=== PATIENT | female | born 1975 | race Two or more races ===

== ENCOUNTER 2024-11-14 13:44 | Emergency (ER) | payer MEDICARE, MEDICAID, SELFPAY ==
--- NOTE | 2024-11-14 13:48 | EKG_ITS ---
[facility] Test Date: 2024-11-14 Pat Name: LAITH THOMAS Department: Room: - Gender: Female Psychology Instructor: : 1975 Requested By: Edvin Mendoza (PRAKASH) Order Number: [id number] Reading MD: Edvin Mendoza (LITHOGRAPHER APPRENTICE) Measurements Intervals [place] Rate: 97 P: 26 [place]: 166 QRS: -75 QRSD: 89 T: 35 QT: 364 QTc: 464 Interpretive Statements SINUS RHYTHM LOW QRS VOLTAGE IN PRECORDIAL LEADS [QRS DEFLECTION < 1.0 mV IN CHEST LEADS] INFERIOR MYOCARDIAL INFARCTION , PROBABLY OLD [40+ ms Q WAVE AND/OR ST/T ABNORMALITY IN II/aVF] ANTEROLATERAL MYOCARDIAL INFARCTION , OF INDETERMINATE AGE [40+ ms Q WAVE IN I/aVL/V3-V6] No previous ECG available for comparison /[id number]/[email or web address]/[id number]
[2024-11-14 13:58] VITALS: BP 125/90; PULSE 100; RESP 18; TEMP 36.7; O2SAT 94; BMI 32.1
--- NOTE | 2024-11-14 14:08 | XR_ITS ---
Examination: PA chest single view TECHNIQUE: Upright PA chest single view Date and time: November 14, 2024 1420 hours INDICATIONS: Dizziness today FINDINGS: Normal heart size No pneumonia or pulmonary edema Moderate osteopenia IMPRESSION: No pneumonia or pulmonary edema
--- NOTE | 2024-11-14 14:11 | PD.EDRME ---
Rapid Medical Screening Exam E Arrival date/time: 11/14/24 13:44 49-year-old female presents to the emergency department today for complaints of feeling weird patient reports history of Graves' disease Chief Complaint: Syncope / Near Syncope Vital signs: Vital Signs Temperature 98.0 F 11/14/24 13:58 Pulse Rate 100 11/14/24 13:58 Respiratory Rate 18 11/14/24 13:58 Blood Pressure 125/90 H 11/14/24 13:58 Pulse Oximetry (%) 94 L 11/14/24 13:58 Oxygen Delivery Method Room Air 11/14/24 13:58
[2024-11-14 14:30] LABS: Basophils % (Auto) 0 % (0-2.5); Eosinophils % (Auto) 0 % (0-10); Hematocrit 41.5 % (36.0-46.0); Hemoglobin 14.8 g/dL (12.0-16.0); Immature Granulocytes % (Auto) 1 % (0-0); Immature Granulocytes Auto 0.06 Thou/mm3 (0.00-0.00); Lymphocytes # (Auto) 1.6 Thou/mm3 (1.0-4.8); Lymphocytes % (Auto) 18 % (10-50); Mean Corpuscular HGB Conc 35.7 g/dl (31.0-37.0); Mean Corpuscular Hemoglobin 32.3 pg (25.0-35.0); Mean Corpuscular Volume 91 fL (80-100); Monocytes # (Auto) 0.4 Thou/mm3 (0.0-0.8); Monocytes % (Auto) 5 % (0-12); Neutrophils # (Auto) 6.9 Thou/mm3 (1.8-7.7); Neutrophils % (Auto) 77 % (37-80); Nucleated Red Blood Cell % 0 /100 WBC (0); Platelet Count 310 Thou/mm3 (140-440); RDW Standard Deviation 49.2 fL (36.4-46.3); Red Blood Count 4.58 Miln/mm3 (4.00-5.20); White Blood Count 8.9 Thou/mm3 (3.6-11.0)
[2024-11-14 14:43] LABS: INR 1.1 (0.9-1.3); Partial Thromboplastin Time 23.9 Seconds (22.0-36.0); Prothrombin Time 11.5 Seconds (9.0-12.2)
[2024-11-14 14:45] LABS: B-Type Natriuretic Peptide 24 pg/mL (0-100)
[2024-11-14 14:50] LABS: Alanine Aminotransferase 33 U/L (10-49); Albumin, Serum 4.9 gm/dL (3.5-5.0); Albumin/Globulin Ratio 1.9 (1.2-2.2); Alkaline Phosphatase 101 U/L (46-116); Anion Gap 12 (7-16); Aspartate Amino Transferase 25 U/L (0-34); BUN/Creatinine Ratio 14 Ratio (12-20); Bilirubin,Total 0.9 mg/dL (0.3-1.2); Blood Urea Nitrogen 11 mg/dL (9-23); Calcium 9.6 mg/dL (8.3-10.6); Calcium (Corrected) 9.6 mg/dL (8.5-10.1); Carbon Dioxide 21.1 mMol/L (20.0-31.0); Chloride 106 mMol/L (98-107); Creatinine (Component) 0.8 mg/dL (0.6-1.3); Estimated Creatinine Clearance 79.1 mL/min (>60); Free T4 (Free Thyroxine) 0.88 ng/dL (0.89-1.76); Globulin 2.6 gm/dL (2.3-3.5); Glucose 167 mg/dL (74-106); Magnesium 2.1 mg/dL (1.6-2.6); Osmolality,Calculated 280 (275-295); Potassium 3.2 mMol/L (3.4-5.1); Sodium 139 mMol/L (136-145); Thyroid Stimulating Hormone 14.57 uIU/mL (0.55-4.78); Total Protein 7.5 gm/dL (5.7-8.2); Troponin I < 0.002 ng/mL (0.0-0.045); eGFR > 60 See Note
[2024-11-14 15:13] LABS: HCG Qualitative,Urine Negative
[2024-11-14 16:58] LABS: Amphetamine/Methamp Scrn,U Positive (Negative); Barbiturate Screen,Urine Negative (Negative); Benzodiazepines Screen,Urine Negative (Negative); Benzoylecgonine Screen, Ur Negative (Negative); Fentanyl Screen,Urine Negative (Negative); Opiate Screen,Urine Negative (Negative); THC Screen,Urine Negative (Negative)
[2024-11-14 18:18] VITALS: BP 116/90; PULSE 82; RESP 18; TEMP 36.7; O2SAT 95
[2024-11-14 18:33] LABS: Troponin I < 0.002 ng/mL (0.0-0.045)
--- NOTE | 2024-11-14 18:48 | PC.NURSE ---
BIBA for c/o feeling weak, faint and nauseaous this morning, having problems waking up. After waking up patient started to walk around in the heat and feels like she is dehydrated and wanted to pass out. On assessment pt is slow on sppech which she stated is her normal speech, GCS 15. Lips are dry and cracked, urine output is low and dark brown today. Pt reported that she is homeless for a few days after she had a argument with her BF, yesterday she was able to stay in a motel for a night. PMH Schizophernia bipolar, hypothyroid, hyperthryoid, partilall leggaly blind, graves disease, prolong QT (irregular heart).
[2024-11-14 19:50] LABS: Collection Type, Urine Clean Catch; RBC,Urine 0 /hpf (0-3)
--- NOTE | 2024-11-14 20:00 | PD.EDSYNC ---
ED Syncope RME/HPI General Chief Complaint: Syncope / Near Syncope Stated Complaint: FEELING FEINT, NAUSEA/VOMITING Time Seen by Provider: 11/14/24 21:33 Arrival date/time: 11/14/24 13:44 49-year-old homeless female presents to the ED with a complaint of feeling like she is going to pass out. She states she was walking down the street and passerby's noticed her and called the ambulance. She denies any recent illness with fever, chills, cough, upper respiratory complaints. She denies nausea or vomiting. She states she is homeless and has no stable place to go. She indicates she is clean from drugs for a couple of days She has a past medical history of Graves' disease for which she is supposed to be taking thyroid medication which she states she has not been taking for approximately 30 days. Mode of arrival: ambulatory Limitations: no limitations RME / HPI RME / HPI narrative: 11/14/24 13:44 49-year-old female presents to the emergency department today for complaints of feeling weird patient reports history of Graves' disease Related Data Previous Rx's ?Medication ?Instructions ?Recorded levothyroxine 50 mcg capsule 50 mcg PO QDAY #30 caps 11/14/24 Allergies Allergy/AdvReac Type Severity Reaction Status Date / Time trazodone Allergy Severe Swelling Verified 11/16/24 10:19 of Lip/Tongue/Throat ibuprofen Allergy Intermediate SWELLING Verified 11/16/24 10:19 ketorolac (From Toradol) Allergy Verified 11/16/24 13:13 naproxen Allergy Verified 11/16/24 10:19 Review of Systems Review of Systems Systems Reviewed: All systems reviewed, normal except as documented Past Medical History Past Medical History CARDIAC: Negative Congestive Heart Failure RESPIRATORY: Negative Chronic Obstructive Pulmonary Disease (COPD) GENITOURINARY: Negative Renal Disease ENDOCRINE: Positive Graves' Disease; Negative Diabetes Mellitus Type 1 or Diabetes Mellitus Type 2 PSYCHO/SOCIAL: Positive Psychiatric Problems, Schizophrenia, Bipolar Disorder, Depression, Anxiety and Post Traumatic Stress Disorder Social History SMOKING STATUS: Never smoker ED Exam Narrative Physical exam: Alert 49-year-old female, no acute distress noted. Lungs are clear, regular rate and rhythm. Abdomen is soft and nontender. Moves all extremities well. General Limitations: Present no limitations General appearance: Present alert and in no apparent distress Head Head exam: Present atraumatic and normal inspection Eye Eye exam: Present normal appearance; Absent scleral icterus or conjunctival injection ENT ENT exam: Present normal exam Neck Neck exam: Present normal inspection Chest Chest inspection: Present normal inspection Respiratory Respiratory exam: Present normal lung sounds bilaterally; Absent respiratory distress Cardiovascular Cardiovascular exam: Present regular rate and normal rhythm Abdominal Exam Abdominal exam: Present soft; Absent distention or tenderness Extremities Exam Extremities exam: Present normal inspection and full ROM Back Exam Back exam: Present full ROM Neurological Exam Neurological exam: Present alert and oriented X3; Absent motor sensory deficit Psychiatric Psychiatric exam: Present normal affect and normal mood Skin Skin exam: Present warm, dry, intact and normal color Course Course Course Narrative: Labs reveal a normal white count, normal H&H and normal platelets. Coags are normal. CMP reveals low potassium of 3.2 and an elevated glucose of 167 with magnesium 2.1. All other components are normal. Troponin is less than 0.002 and BNP is normal at 24. TSH is significantly elevated at 14.57 and free T4 is minimally low at 0.88. Urinalysis reveals turbid light yellow urine with positive nitrites, positive leukocyte esterase, 4 WBCs and 4+ bacteria. Urine hCG is negative. UDS is positive for amphetamines. EKG reveals sinus rhythm as a rate of 97. No STEMI. XR chest reveals: No pneumonia or pulmonary edema. Patient was given potassium chloride 40 mEq p.o. as well as ceftriaxone 1 g IM prior to discharge. Quality Measures none Orders Category Date Time Status EKG (ED ONLY) *Do not use* NOW Care 11/14/24 13:48 Completed EKG (ED ONLY) *Do not use* NOW Care 11/14/24 17:37 Completed Orthostatic Vitals NOW Care 11/14/24 21:17 Completed EKG (ED Only) Stat Exams 11/14/24 13:48 Draft EKG (ED Only) Stat Exams 11/14/24 17:37 Ordered XR chest 1V portable Stat Exams 11/14/24 14:08 Completed B-Type Natriuretic Peptide Stat Lab 11/14/24 14:15 Completed CBC Stat Lab 11/14/24 14:15 Completed Comprehensive Metabolic Panel Stat Lab 11/14/24 14:15 Completed Drug Screen,Urine Stat Lab 11/14/24 14:43 Completed Free T4 (Free Thyroxine) Stat Lab 11/14/24 14:15 Completed HCG Qualitative,Urine Stat Lab 11/14/24 14:43 Completed Magnesium Stat Lab 11/14/24 14:15 Completed Partial Thromboplastin Time Stat Lab 11/14/24 14:15 Completed Prothrombin Time with INR Stat Lab 11/14/24 14:15 Completed TSH [Thyroid Stimulating Hormone] Stat Lab 11/14/24 14:15 Completed Troponin I Stat Lab 11/14/24 14:15 Completed Troponin I Stat Lab 11/14/24 18:01 Completed Urinalysis Stat Lab 11/14/24 19:35 Completed Urine Culture Stat Lab 11/14/24 19:35 Completed Potassium Chloride [K-Dur] Med 11/14/24 21:42 Discontinued 40 meq PO X1 ONE cefTRIAXone [Rocephin] 1,000 mg Med 11/14/24 21:18 Discontinued Lidocaine 1% 20 ml [Xylocaine 1% 20 ML] 2.1 ml IM X1 Vital Signs Vital signs: Vital Signs Temperature 98.0 F 11/14/24 13:58 Pulse Rate 100 11/14/24 13:58 Respiratory Rate 18 11/14/24 13:58 Blood Pressure 125/90 H 11/14/24 13:58 Pulse Oximetry (%) 94 L 11/14/24 13:58 Oxygen Delivery Method Room Air 11/14/24 13:58 Syncope MDM Narrative MDM Narrative:: 49-year-old homeless female presents to the ED with a complaint of feeling like she is going to pass out. She states she was walking down the street and passerby's noticed her and called the ambulance. She denies any recent illness with fever, chills, cough, upper respiratory complaints. She denies nausea or vomiting. She states she is homeless and has no stable place to go. She indicates she is clean from drugs for a couple of days She has a past medical history of Graves' disease for which she is supposed to be taking thyroid medication which she states she has not been taking for approximately 30 days. Alert 49-year-old female, no acute distress noted. Lungs are clear, regular rate and rhythm. Abdomen is soft and nontender. Moves all extremities well. Labs reveal a normal white count, normal H&H and normal platelets. Coags are normal. CMP reveals low potassium of 3.2 and an elevated glucose of 167 with magnesium 2.1. All other components are normal. Troponin is less than 0.002 and BNP is normal at 24. TSH is significantly elevated at 14.57 and free T4 is minimally low at 0.88. Urinalysis reveals turbid light yellow urine with positive nitrites, positive leukocyte esterase, 4 WBCs and 4+ bacteria. Urine hCG is negative. UDS is positive for amphetamines. EKG reveals sinus rhythm as a rate of 97. No STEMI. XR chest reveals: No pneumonia or pulmonary edema. Patient was given potassium chloride 40 mEq p.o. as well as ceftriaxone 1 g IM prior to discharge. Symptoms, exam, labs and diagnostic studies are consistent with acute urinary tract infection and hypothyroidism. Patient was discharged home in stable and improved condition. She was advised to follow-up with her primary care physician in 24 to 48 hours. She was encouraged to return to the ED for any new or worsening symptoms. Patient data External records reviewed:: [facility] previous records Clinical information provided by:: patient Social determinants that could affect healthcare access:: none Patient has the following chronic illnesses:: Hypothyroidism How is presenting disease/condition affected by chronic disease/condition?: exacerbated by Evaluation data The following diagnostics were reviewed and interpreted by me:: lab results, radiology exam(s) and EKG tracing(s) Lab and/or radiology exams considered but not ordered:: N/A Interpretation Summary: As noted above Medications / Prescriptions Medications or Prescriptions considered but not ordered:: N/A Medication administrations:: Medication Administration History Discontinued Medications Ceftriaxone Sodium 1,000 mg/ (Lidocaine HCl 2.1 ml) 0 mg IM X1 ONE Stop: 11/14/24 21:19 Last Admin: 11/14/24 22:01 Dose: 1,000 mg Documented By: SANJUANA Potassium Chloride (Potassium Chloride 20 Meq Tabcr) 40 meq PO X1 ONE Stop: 11/14/24 21:43 Last Admin: 11/14/24 22:02 Dose: 40 meq Documented By: SANJUANA As noted above Consultations Consultation(s) initiated? (list below): No Diagnosis Syncope Differential Diagnosis: syncope due to orthostatic hypotension, vasovagal syncope, dehydration and other (UTI) Most likely diagnosis given after review of the tests above:: UTI Admission Indicated Admission indicated?: not indicated Explain why admission is indicated or not indicated:: Patient is stable for discharge Admission Request Was there a request for admission?: No Disposition Plan Disposition Plan: Discharge Discharge Attestation Discharge Attestation: The patient and all family members were given an opportunity to ask questions and understood the discharge instructions. Discharge instructions specifically effects, indications for sooner follow up or return to the emergency department, and the expected course of current diagnosis. Patient condition: Stable Discharge Plan Plan Patient Disposition: HOME (Self Care) Discharge Disposition comment: Stable Prescriptions/Referrals Prescriptions/Med Rec: New levothyroxine 50 mcg capsule 50 mcg PO QDAY Qty: 30 0RF Referrals: No Primary/Family,Physician [Primary Care Provider] - In 1 week Problem List Clinical Impression: Urinary tract infection, Hypothyroidism Patient/Caregiver Discharge Instructions Education Materials: Urinary Tract Infections in Women, ED Hypothyroidism Additional Instructions: Take your antibiotic as prescribed and complete the course even though you may be feeling better. Continue taking your thyroid medication on a daily basis. Follow-up with your primary care physician in 24 to 48 hours. Return to the ED for any new or worsening symptoms. Print Language: Georgian Stand Alone Forms: Becky Award Info., Patient Portal Info Letter PA/ELECTRONIC EQUIPMENT SET UP OPERATOR Supervising Physician PA/ELECTRONIC EQUIPMENT SET UP OPERATOR Supervising Physician: Dr. Kingsley
[2024-11-14 20:04] LABS: Bacteria,Urine 4+; Bilirubin,Urine Negative (Negative); Blood,Urine Negative (Negative); Clarity,Urine Turbid (Clear/Hazy); Color,Urine Lt-Yellow (Lt Yel-Yel); Glucose, Urine Negative (Negative); Ketones,Urine Negative (Negative); Leukocyte Esterase,Urine Positive (Negative); Nitrite,Urine Positive (Negative); PH,Urine 6.5 (5.0-7.0); Protein,Urine Negative (Neg - Trace); Specific Gravity,Urine 1.011 (1.001-1.035); Squamous Epithelial Cell,Urine 3 /hpf (0-5); Urobilinogen,Urine Negative mg/dL (0.0-1.0); WBC,Urine 4 /hpf (0-5)
[2024-11-14 21:49] VITALS: BP 130/90; PULSE 74; RESP 18; TEMP 36.5; O2SAT 92
[2024-11-14] MEDS: cefTRIAXone 1,000 MG, LIDOCAINE 1% 20 ML 2.1 ML IM (22:01)
[2024-11-14 22:02] VITALS: BP 119/97; BP 121/90; BP 125/92; PULSE 80; PULSE 82; PULSE 89
[2024-11-14] MEDS: POTASSIUM CHLORIDE 20 mEq TABCR 40 MEQ PO (22:02)
== END 2024-11-14 22:07 | disposition home or self-care (01) ==
PROVIDERS: Nurse Practitioner Primary Care; Physician Assistant; Emergency Provider Emergency Medicine
DX: N39.0 Urinary tract infection, site not specified (principal); E03.9 Hypothyroidism, unspecified; R42 Dizziness and giddiness; R94.31 Abnormal electrocardiogram [ECG] [EKG]; Z59.00 Homelessness unspecified
CPT/HCPCS: 36415; 71045; 80053; 80307; 81001; 81025; 83735; 83880; 84439; 84443; 84484; 85025; 85610; 85730; 87077; 87086; 87186; 93005; 96372; 99283; J0696; J3490; A9270

== ENCOUNTER 2024-11-16 10:11 | Emergency (ER) | payer MEDICARE, MEDICAID, SELFPAY ==
[2024-11-16 10:14] VITALS: PULSE 86; RESP 18; O2SAT 96; BMI 32.1
[2024-11-16 10:15] VITALS: BP 132/91; PULSE 94; RESP 18; TEMP 36.7; O2SAT 95
[2024-11-16 10:43] VITALS: BP 132/101; PULSE 94; RESP 18; TEMP 36.5; O2SAT 97; BMI 31.1
--- NOTE | 2024-11-16 10:51 | EDRME_ITS ---
Rapid Medical Screening Exam [facility] Arrival date/time: 11/16/24 10:11 49-year-old female with no known medical history presents to the emergency room with a chief complaint of bilateral back pain, dysuria. Patient states she has a urinary tract infection but has not taken any antibiotics. Patient is also stating she needs to see psychosocial rehabilitation counselor for resources on her homelessness. I have greeted and performed a focused initial assessment of this patient. A comprehensive ED assessment and evaluation of the patient, analysis of all test results, and completion of the medical decision making process will be conducted by additional ED providers. Chief Complaint: Back Pain/Injury Time Seen by Provider: 11/16/24 10:40 Vital signs: Vital Signs Temperature 98.0 F 11/16/24 10:15 Pulse Rate 94 11/16/24 10:15 Respiratory Rate 18 11/16/24 10:15 Blood Pressure 132/91 H 11/16/24 10:15 Pulse Oximetry (%) 95 11/16/24 10:15 Oxygen Delivery Method Room Air 11/16/24 10:15 Vital signs reviewed by provider: Yes
--- NOTE | 2024-11-16 11:11 | PC.CC ---
Kelly GRANT was consulted by PRAKASH Zavala regarding providing resources to patient. Kelly GRANT and HOME HEALTH PROVIDER Alfredo Morris made face to face contact with the patient introduced selves, roles, and reason for visits. Patient appeared alert and oriented to self location and situation. Patient reports she would like for social welfare research worker to help place her in a hotel. ASW explained to patient that she could be provided with [facility] Resource Guide with Jail information and the [facility] office who can possibly provide her assistance with housing. Patient reports she was living in a room and board in [place] but decided to put her 30 day notice. Patient reports last night she relapsed on Michelle Meth. Patient reports she is not going back to [place] and wants to remain in [place]. ASW provided patient with [facility] Resource Guide with fci information and also provided her with [facility] Resource Guide. Patient stated, When I am discharged I will be going to the welfare office. oil well services superintendent to remain available.
[2024-11-16 11:51] LABS: Basophils % (Auto) 1 % (0-2.5); Eosinophils % (Auto) 1 % (0-10); Hematocrit 39.8 % (36.0-46.0); Hemoglobin 13.8 g/dL (12.0-16.0); Immature Granulocytes % (Auto) 1 % (0-0); Immature Granulocytes Auto 0.06 Thou/mm3 (0.00-0.00); Lymphocytes # (Auto) 1.8 Thou/mm3 (1.0-4.8); Lymphocytes % (Auto) 20 % (10-50); Mean Corpuscular HGB Conc 34.7 g/dl (31.0-37.0); Mean Corpuscular Volume 92 fL (80-100); Monocytes # (Auto) 0.5 Thou/mm3 (0.0-0.8); Monocytes % (Auto) 5 % (0-12); Neutrophils # (Auto) 6.5 Thou/mm3 (1.8-7.7); Neutrophils % (Auto) 73 % (37-80); Nucleated Red Blood Cell % 0 /100 WBC (0); Platelet Count 302 Thou/mm3 (140-440); RDW Standard Deviation 50.5 fL (36.4-46.3); Red Blood Count 4.31 Miln/mm3 (4.00-5.20); White Blood Count 8.9 Thou/mm3 (3.6-11.0)
[2024-11-16 12:01] VITALS: BP 146/104; PULSE 79; RESP 17; TEMP 36.1; O2SAT 95
[2024-11-16 12:13] LABS: Alanine Aminotransferase 19 U/L (10-49); Albumin, Serum 4.4 gm/dL (3.5-5.0); Albumin/Globulin Ratio 1.8 (1.2-2.2); Alkaline Phosphatase 103 U/L (46-116); Anion Gap 11 (7-16); Aspartate Amino Transferase 10 U/L (0-34); BUN/Creatinine Ratio 11 Ratio (12-20); Bilirubin,Total 0.5 mg/dL (0.3-1.2); Blood Urea Nitrogen 9 mg/dL (9-23); Calcium 9.1 mg/dL (8.3-10.6); Calcium (Corrected) 9.1 mg/dL (8.5-10.1); Carbon Dioxide 26.5 mMol/L (20.0-31.0); Chloride 103 mMol/L (98-107); Creatinine (Component) 0.8 mg/dL (0.6-1.3); Estimated Creatinine Clearance 77.9 mL/min (>60); Globulin 2.5 gm/dL (2.3-3.5); Glucose 103 mg/dL (74-106); Lipase 33 U/L (12-53); Osmolality,Calculated 278 (275-295); Potassium 3.2 mMol/L (3.4-5.1); Sodium 140 mMol/L (136-145); Total Protein 6.9 gm/dL (5.7-8.2); eGFR > 60 See Note
[2024-11-16 12:49] LABS: Collection Type, Urine Clean Catch
[2024-11-16 12:59] LABS: HCG Qualitative,Urine Negative
[2024-11-16 13:06] LABS: Bilirubin,Urine Negative (Negative); Blood,Urine Negative (Negative); Color,Urine Yellow (Lt Yel-Yel); Glucose, Urine Negative (Negative); Hyaline Casts,Urine < 1 /hpf (0-1); Ketones,Urine Negative (Negative); Leukocyte Esterase,Urine Positive (Negative); Nitrite,Urine Negative (Negative); Protein,Urine 1+ (Neg - Trace); RBC,Urine 13 /hpf (0-3); Squamous Epithelial Cell,Urine 2 /hpf (0-5); Urobilinogen,Urine Negative mg/dL (0.0-1.0); WBC,Urine 5 /hpf (0-5)
[2024-11-16] MEDS: cefTRIAXone 1,000 MG, LIDOCAINE 1% 20 ML 2.1 ML IM (13:07)
[2024-11-16] MEDS: traMADol HCL 50 MG TABLET PO (13:10)
--- NOTE | 2024-11-16 13:15 | PD.EDBACK ---
ED Back Injury Pain RME/HPI General Chief Complaint: Back Pain/Injury Stated Complaint: BACK PAIN Time Seen by Provider: 11/16/24 10:40 Arrival date/time: 11/16/24 10:11 Limitations: no limitations RME / HPI RME / HPI Narrative: 11/16/24 10:11 49-year-old female with no known medical history presents to the emergency room with a chief complaint of bilateral back pain, dysuria. Patient states she has a urinary tract infection but has not taken any antibiotics. Patient is also stating she needs to see social insurance analyst for resources on her homelessness. I have greeted and performed a focused initial assessment of this patient. A comprehensive ED assessment and evaluation of the patient, analysis of all test results, and completion of the medical decision making process will be conducted by additional ED providers. DR. CERON MAIN ED EVALUATION: 49 year old female with history of bipolar disorder presents to the ED for evaluation of back pain today. Pain described as aching in sensation that is located most to her lower back, rated as moderate. Reports she was just evaluated here two days ago and diagnosed with a UTI. 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 Denies any urinary symptoms, hematuria, dysuria. Denies fevers, chills, sweats. No other associated symptoms or complaints reported. Related Data Previous Rx's ?Medication ?Instructions ?Recorded levothyroxine 50 mcg capsule 50 mcg PO QDAY #30 caps 11/14/24 sulfamethoxazole 800 1 tab PO BID 7 days #14 tabs 11/14/24 mg-trimethoprim 160 mg tablet (Bactrim DS) Allergies Allergy/AdvReac Type Severity Reaction Status Date / Time trazodone Allergy Severe Swelling Verified 11/16/24 10:19 of Lip/Tongue/Throat ibuprofen Allergy Intermediate SWELLING Verified 11/16/24 10:19 ketorolac (From Toradol) Allergy Verified 11/16/24 13:13 naproxen Allergy Verified 11/16/24 10:19 Review of Systems Review of Systems Narrative Review of Systems: GEN: No fever, no chills, no weight loss EYES: No discharge, no visual changes, no pain HEENT: No ear pain, no congestion, no sore throat PULM: No shortness of breath, no cough, no congestion CV: No chest pain, no dyspnea on exertion, no palpitations GI: No nausea, no vomiting, no diarrhea, no pain, no constipation : No frequency, no urgency and no dysuria MUSC/SKEL No joint pain, +back pain SKIN: No rash NEURO: No weakness, no headache Past Medical History Past Medical History CARDIAC: Negative Congestive Heart Failure RESPIRATORY: Negative Chronic Obstructive Pulmonary Disease (COPD) GENITOURINARY: Negative Renal Disease ENDOCRINE: Positive Graves' Disease; Negative Diabetes Mellitus Type 1 or Diabetes Mellitus Type 2 PSYCHO/SOCIAL: Positive Psychiatric Problems, Schizophrenia, Bipolar Disorder, Depression, Anxiety and Post Traumatic Stress Disorder Social History SMOKING STATUS: Never smoker ED Exam General Limitations: Present no limitations General appearance: Present alert and in no apparent distress Head Head exam: Present atraumatic, normocephalic and normal inspection Eye Eye exam: Present normal appearance, PERRL and EOMI ENT ENT exam: Present normal exam, normal oropharynx and mucous membranes moist Neck Neck exam: Present normal inspection, full ROM and trachea midline Chest Chest inspection: Present normal inspection and symmetric chest wall rise Respiratory Respiratory exam: Present normal lung sounds bilaterally Cardiovascular Cardiovascular exam: Present regular rate, normal rhythm and normal heart sounds Abdominal Exam Abdominal exam: Present soft, normal bowel sounds and other (No suprapubic tenderness ) Extremities Exam Extremities exam: Present normal inspection and full ROM Back Exam Back exam: Present full ROM; Absent CVA tenderness (R) or CVA tenderness (L) Neurological Exam Neurological exam: Present alert, oriented X3 and CN II-XII intact Psychiatric Psychiatric exam: Present normal affect and normal mood Skin Skin exam: Present warm, dry, intact and normal color Course Quality Measures none Orders Category Date Time Status CBC Stat Lab 11/16/24 11:43 Completed CMP [Comprehensive Metabolic Panel] Stat Lab 11/16/24 11:43 Completed HCG Qualitative,Urine Stat Lab 11/16/24 12:35 Completed Lipase Stat Lab 11/16/24 11:43 Completed UA [Urinalysis] Stat Lab 11/16/24 12:35 Completed Urine Culture Stat Lab 11/16/24 12:35 Received Ketorolac Inj [Toradol Inj] Med 11/16/24 12:47 Discontinued 30 mg IM X1 ONE cefTRIAXone [Rocephin] 1,000 mg Med 11/16/24 12:47 Discontinued Lidocaine 1% 20 ml [Xylocaine 1% 20 ML] 2.1 ml IM X1 traMADol HCL [Ultram] Med 11/16/24 13:05 Discontinued 50 mg PO X1 ONE Vital Signs Vital signs: Vital Signs Temperature 98.0 F 11/16/24 10:15 Pulse Rate 94 11/16/24 10:15 Respiratory Rate 18 11/16/24 10:15 Blood Pressure 132/91 H 11/16/24 10:15 Pulse Oximetry (%) 95 11/16/24 10:15 Oxygen Delivery Method Room Air 11/16/24 10:15 Pulse ox is 95% on room air which is adequate. Back Pain / Injury MDM Narrative MDM Narrative:: Cristina Otto am scribing for and in the presence of Dr. Ceron. Patient data External records reviewed:: [facility] previous records (I reviewed ED Visit on 11/14/2024 ) Clinical information provided by:: patient Social determinants that could affect healthcare access:: mental health Patient has the following chronic illnesses:: Bipolar disorder How is presenting disease/condition affected by chronic disease/condition?: uneffected by Evaluation data The following diagnostics were reviewed and interpreted by me:: lab results Lab and/or radiology exams considered but not ordered:: None Interpretation Summary: CBC within normal limits Potassium is just below normal limits Medications / Prescriptions Medications or Prescriptions considered but not ordered:: None Medication administrations:: Medication Administration History Discontinued Medications Ceftriaxone Sodium 1,000 mg/ (Lidocaine HCl 2.1 ml) 0 mg IM X1 ONE Stop: 11/16/24 12:48 Last Admin: 11/16/24 13:07 Dose: 1,000 mg Documented By: Ketorolac Tromethamine (Ketorolac Inj 60 Mg/2 Ml Vial) 30 mg IM X1 ONE Stop: 11/16/24 12:48 Last Admin: 11/16/24 13:13 Dose: Not Given Documented By: Non-Admin Reason: Allergy Tramadol HCl (Tramadol Hcl 50 Mg Tablet) 50 mg PO X1 ONE Stop: 11/16/24 13:06 Last Admin: 11/16/24 13:10 Dose: 50 mg Documented By: See above Consultations Consultation(s) initiated? (list below): No Diagnosis Differential diagnosis back pain/injury: sciatica, strain of lumbar region, renal colic, pyelonephritis and other (UTI) Most likely diagnosis given after review of the tests above:: UTI MSK pain Psychiatric disorder Admission Indicated Admission indicated?: not indicated Admission Request Was there a request for admission?: No Disposition Plan Disposition Plan: Discharge Discharge Attestation Discharge Attestation: The patient and all family members were given an opportunity to ask questions and understood the discharge instructions. Discharge instructions specifically effects, indications for sooner follow up or return to the emergency department, and the expected course of current diagnosis. Patient condition: Stable Discharge Plan Plan Patient Disposition: HOME (Self Care) Patient condition on transfer: Stable Prescriptions/Referrals Prescriptions/Med Rec: No Action sulfamethoxazole-trimethoprim [Bactrim DS] 800-160 mg tablet 1 tab PO BID 7 Days Qty: 14 0RF levothyroxine 50 mcg capsule 50 mcg PO QDAY Qty: 30 0RF Referrals: No Primary/Family,Physician [Primary Care Provider] - In 1 week Problem List Clinical Impression: UTI (urinary tract infection), Musculoskeletal pain, Psychiatric disorder Patient/Caregiver Discharge Instructions Education Materials: Urinary Tract Infections in Women, ED Myalgias Additional Instructions: Please pickling operator your antibiotic in the next 24 hours. For pain, take both 1-2 Tylenol 500mg tablets every 6 hours AND 2 Advil Gel 200mg capsules every 6 hours. Follow-up with your primary care doctor in 3 to 5 days for recheck. You can return to the emergency department sooner if symptoms worsen or if you notice any new, concerning issues. Print Language: Ukrainian Stand Alone Forms: Becky Award Info., Patient Portal Info Letter
[2024-11-16 13:45] LABS: Clarity,Urine Hazy (Clear/Hazy)
[2024-11-16 13:46] VITALS: BP 135/112; PULSE 87; RESP 18; TEMP 36.9; O2SAT 97
== END 2024-11-16 13:48 | disposition home or self-care (01) ==
PROVIDERS: Nurse Practitioner Family; Emergency Provider Family Medicine
DX: N39.0 Urinary tract infection, site not specified (principal); M79.18 Myalgia, other site; F99 Mental disorder, not otherwise specified
CPT/HCPCS: 36415; 80053; 81001; 81025; 83690; 85025; 87086; 96372; 99283; J0696; J3490; A9270